=== PATIENT | female | born 1975 | race Two or more races ===

== ENCOUNTER 2024-08-23 20:03 | Emergency (ER) | payer OTHER ==
[~2024-08-23] VITALS: Ht 152.4 cm; Wt 69.9 kg
== END 2024-08-24 00:12 | disposition home or self-care (01) ==
LOC: ER 20:05
DX: T70.0XXA Otitic barotrauma, initial encounter (principal); X58.XXXA Exposure to other specified factors, initial encounter; Z88.6 Allergy status to analgesic agent